=== PATIENT | male | born 1975 | race Caucasian/White ===

== ENCOUNTER 2017-08-29 12:50 | Inpatient (IN) | payer SELFPAY ==
[~2017-08-29] VITALS: Ht 190.5 cm; Wt 89.7 kg
[2017-08-29] MEDS ORDERED: ZANTAC 150MG T150 MG PO (13:59)
[2017-08-29 14:12] LABS: BASO % 0.2 % (0.0-2.0); EOS # 0.1 (0.0-0.7); EOS % 1.4 % (0-4.0); GRAN # 2.4 (1.4-6.5); GRAN % 55.1 % (42.2-75.2); HEMOGLOBIN 13.8 g/dl (13.5-18.0); LYMPH # 1.5 (1.2-3.4); LYMPH % 35.6 % (20.0-51.0); MEAN CELL VOLUME 87 fl (80.0-100.0); MEAN CORPUSCULAR HEMOGLOBIN 29 pg (27.0-31.0); MEAN CORPUSCULAR HGB CONC 34 g/dl (33.0-37.0); MEAN PLATELET VOLUME 10.3 fl (7.4-10.4); MONO # 0.3 (0.1-0.6); MONO % 7.7 % (1.7-9.3); PLATELET COUNT 187 K/mm3 (130-400); RED BLOOD COUNT 4.71 M/mm3 (4.20-5.60); REDCELL DISTRIBUTION WIDTH-CV 12.3 % (11.5-14.5)
[2017-08-29 14:19] VITALS: BP 125/82; PULSE 50; TEMP 97.7
[2017-08-29 14:31] LABS: ERYTHROCYTE SEDIMENTATION RATE 1 mm/hr (0-15)
[2017-08-29 15:12] VITALS: BP 137/76; PULSE 52
[2017-08-29 15:58] VITALS: BP 134/82; PULSE 44; TEMP 97
[2017-08-29 17:45] VITALS: BP 129/75; PULSE 60
[2017-08-29 20:16] VITALS: BP 135/68; PULSE 50; TEMP 98
[2017-08-30] VITALS (14 sets, daily range): BP systolic 104–148; BP diastolic 46–83; PULSE 46–67; TEMP 97.6–98.7
[2017-08-31 00:14] VITALS: BP 131/71; PULSE 52; TEMP 98.5
[2017-08-31 03:05] VITALS: BP 120/40; PULSE 59; TEMP 97.5
[2017-08-31 08:46] VITALS: BP 112/44; PULSE 63; TEMP 98.1
[2017-08-31 12:28] VITALS: BP 118/58; PULSE 59; TEMP 97.4
[2017-08-31 14:00] VITALS: BP 129/65; PULSE 67
[2017-08-31 14:56] LABS: ALBUMIN 3.6 gm/dL (3.5-5.0); BILIRUBIN,TOTAL 0.7 mg/dL (0.0-1.0); CALCIUM 8.8 mg/dL (8.4-10.2); CREATININE, serum 1.2 mg/dL (0.66-1.25); POTASSIUM 4.2 mmol/L (3.4-5.0); TOTAL PROTEIN 6.2 gm/dL (6.4-8.2)
[2017-08-31 15:03] LABS: BASO % 0.2 % (0.0-2.0); EOS % 0.2 % (0-4.0); GRAN # 8.6 (1.4-6.5); GRAN % 76.2 % (42.2-75.2); HEMOGLOBIN 12.4 g/dl (13.5-18.0); LYMPH # 1.7 (1.2-3.4); LYMPH % 15.3 % (20.0-51.0); MEAN CELL VOLUME 88 fl (80.0-100.0); MEAN CORPUSCULAR HEMOGLOBIN 30 pg (27.0-31.0); MEAN CORPUSCULAR HGB CONC 34 g/dl (33.0-37.0); MEAN PLATELET VOLUME 10.2 fl (7.4-10.4); MONO # 0.9 (0.1-0.6); MONO % 7.7 % (1.7-9.3); PLATELET COUNT 173 K/mm3 (130-400); REDCELL DISTRIBUTION WIDTH-CV 12.3 % (11.5-14.5)
[2017-08-31 15:07] LABS: HEMATOCRIT 36.8 % (42.0-52.0)
[2017-08-31 15:18] LABS: ARTERIAL BLD GAS O2 SATURATION 97.7 % (92-100); ARTERIAL BLOOD GAS HCO3 23.8 meq/L (22-26); ARTERIAL BLOOD GAS PCO2 39.9 mmHg (35-45); ARTERIAL BLOOD GAS pH 7.39 (7.35-7.45)
[2017-08-31 15:19] LABS: ARTERIAL BLOOD GAS PO2 122.7 mmHg (80-100)
[2017-08-31 20:00] VITALS: BP 126/66; PULSE 50; TEMP 97.7
[2017-09-01] VITALS (8 sets, daily range): BP systolic 110–132; BP diastolic 49–82; PULSE 53–81; TEMP 97.8–98.8
[2017-09-01 01:50] LABS: C-PEPTIDE,SERUM 2.62 ng/mL (0.80-3.90)
[2017-09-01 07:02] LABS: BASO % 0.3 % (0.0-2.0); EOS % 0.6 % (0-4.0); GRAN # 3.5 (1.4-6.5); GRAN % 53.6 % (42.2-75.2); HEMOGLOBIN 10.8 g/dl (13.5-18.0); LYMPH # 2.4 (1.2-3.4); LYMPH % 37.2 % (20.0-51.0); MEAN CELL VOLUME 89 fl (80.0-100.0); MEAN CORPUSCULAR HEMOGLOBIN 29 pg (27.0-31.0); MEAN CORPUSCULAR HGB CONC 33 g/dl (33.0-37.0); MEAN PLATELET VOLUME 11.1 fl (7.4-10.4); MONO # 0.5 (0.1-0.6); PLATELET COUNT 159 K/mm3 (130-400); RED BLOOD COUNT 3.74 M/mm3 (4.20-5.60); REDCELL DISTRIBUTION WIDTH-CV 12.5 % (11.5-14.5)
[2017-09-01 07:06] LABS: HEMATOCRIT 33.1 % (42.0-52.0)
[2017-09-01 07:15] LABS: CALCIUM 8.2 mg/dL (8.4-10.2); CREATININE, serum 1.28 mg/dL (0.66-1.25); POTASSIUM 3.6 mmol/L (3.4-5.0)
[2017-09-02] VITALS (15 sets, daily range): BP systolic 117–136; BP diastolic 63–86; PULSE 45–76; TEMP 97.3–98.4
[2017-09-02 06:58] LABS: BASO % 0.6 % (0.0-2.0); EOS # 0.1 (0.0-0.7); EOS % 1.9 % (0-4.0); GRAN # 1.9 (1.4-6.5); GRAN % 41.2 % (42.2-75.2); HEMOGLOBIN 10.7 g/dl (13.5-18.0); LYMPH # 2.2 (1.2-3.4); LYMPH % 47.2 % (20.0-51.0); MEAN CELL VOLUME 89 fl (80.0-100.0); MEAN CORPUSCULAR HEMOGLOBIN 29 pg (27.0-31.0); MEAN CORPUSCULAR HGB CONC 33 g/dl (33.0-37.0); MONO # 0.4 (0.1-0.6); MONO % 9.1 % (1.7-9.3); PLATELET COUNT 138 K/mm3 (130-400); RED BLOOD COUNT 3.66 M/mm3 (4.20-5.60); REDCELL DISTRIBUTION WIDTH-CV 12.2 % (11.5-14.5)
[2017-09-02 07:04] LABS: HEMATOCRIT 32.6 % (42.0-52.0)
[2017-09-02 07:12] LABS: CALCIUM 7.8 mg/dL (8.4-10.2); CREATININE, serum 1.08 mg/dL (0.66-1.25); POTASSIUM 3.4 mmol/L (3.4-5.0)
[2017-09-02 11:39] LABS: BILIRUBIN,TOTAL 0.3 mg/dL (0.0-1.0); CALCIUM 8.5 mg/dL (8.4-10.2); CREATININE, serum 1.14 mg/dL (0.66-1.25); TOTAL PROTEIN 5.2 gm/dL (6.4-8.2)
[2017-09-03 05:17] VITALS: BP 122/57; PULSE 74; TEMP 98.4
[2017-09-03 08:07] VITALS: BP 140/48; PULSE 62; TEMP 98.4
[2017-09-03] MEDS ORDERED: ROXICODONE 55 MG/TAB PO (10:07)
== END 2017-09-03 11:42 | disposition home or self-care (01) | DRG 626 ==
LOC: SURG 12:50
PROVIDERS: Hospitalist; Physician Assistant; Surgery
PROC: 0GBG0ZX Excision of Left Thyroid Gland Lobe, Open Approach, Diagnostic (ICD-10-PCS; 2017-08-30)
PROC: 0GTG0ZZ Resection of Left Thyroid Gland Lobe, Open Approach (ICD-10-PCS; principal; 2017-09-02 08:00)
DX: C73 Malignant neoplasm of thyroid gland (principal); N17.9 Acute kidney failure, unspecified; E16.2 Hypoglycemia, unspecified; F17.220 Nicotine dependence, chewing tobacco, uncomplicated; D63.0 Anemia in neoplastic disease
CPT/HCPCS: 99222; 99232-AI; J0330; J0690; J1100; J1170; J1720; J1885; J2250; J2270; J2405; J2704; J2710; J2765; J3010; J7030; J7042